=== PATIENT | male | born 1955 | race Caucasian/White ===

== ENCOUNTER 2019-07-18 16:44 | Emergency (ER) | payer MEDICARE ==
[2019-07-18] MEDS ORDERED: LORazepam 1 MG Tab PO ONE (17:48)
--- NOTE | 2019-07-18 17:50 | EDM.PDOC ---
ED HPI GENERAL MEDICAL PROBLEM - General Chief Complaint: Cardiovascular Problem Stated Complaint: [facility] Time Seen by Provider: 07/18/19 17:36 Source of Information: Reports: Patient, RN Notes Reviewed History Limitations: Reports: No Limitations - History of Present Illness INITIAL COMMENTS - FREE TEXT/NARRATIVE: 64-year-old gentleman presents via EMS services from detoxification facility for hypotensive events. I was called by the director of the facility stating this gentleman has had episodes of hypotension have given him fluids without much success. He is currently on a [address] for alcohol he does admit to being very nervous otherwise no other complaints - Related Data Allergies Allergy/AdvReac Type Severity Reaction Status Date / Time No Known Allergies Allergy Verified 07/18/19 16:52 Home Meds: Home Meds Aspirin [Lo-Dose Aspirin EC] 81 mg PO DAILY 07/18/19 [History] Cholecalciferol (Vitamin D3) [Vitamin D3] 2,000 unit PO ASDIRECTED 07/18/19 [ History] Cyanocobalamin (Vitamin B12) [Vitamin B12] 100 mcg PO DAILY 07/18/19 [History] Folic Acid 0.4 mg PO DAILY 07/18/19 [History] Latanoprost/Pf [Latanoprost 0.005% Eye Drop] 1 drop EYEBOTH BEDTIME 07/18/19 [ History] Ubidecarenone [Coq-10] 100 mg PO ASDIRECTED 07/18/19 [History] Vitamin E 200 unit PO ASDIRECTED 07/18/19 [History] amLODIPine Besylate [Amlodipine Besylate] 5 mg PO DAILY 07/18/19 [History] cephALEXin [Keflex] 500 mg PO TID 07/18/19 [History] lisinopriL [Lisinopril] 20 mg PO DAILY 07/18/19 [History] Past Medical History Cardiovascular History: Reports: Hypertension Psychiatric History: Reports: Addiction Social & Family History - Tobacco Use Packs/Tins Daily: 1 - Alcohol Use Days Per Week of Alcohol Use: 7 Number of Drinks Per Day: 10 Total Drinks Per Week: 70 - Recreational Drug Use Recreational Drug Use: No ED ROS GENERAL - Review of Systems Review Of Systems: See Below Constitutional: Reports: No Symptoms HEENT: Reports: No Symptoms Respiratory: Reports: No Symptoms Cardiovascular: Reports: No Symptoms GI/Abdominal: Reports: No Symptoms ED EXAM, GENERAL - Physical Exam Exam: See Below Exam Limited By: No Limitations General Appearance: Alert, WD/WN, No Apparent Distress Neck: Normal Inspection, Supple, Non-Tender, Full Range of Motion Respiratory/Chest: No Respiratory Distress, Lungs Clear, Normal Breath Sounds, No Accessory Muscle Use, Chest Non-Tender Cardiovascular: No Murmur, Tachycardia GI/Abdominal: Soft, Non-Tender Psychiatric: Anxious Course - Vital Signs Last Recorded V/S: Last Vital Signs Temp 97.7 F 07/18/19 16:46 Pulse 124 H 07/18/19 17:23 Resp 20 07/18/19 17:23 BP 120/78 07/18/19 17:23 Pulse Ox 99 07/18/19 17:23 - Orders/Labs/Meds Orders: Active Orders 24 hr Category Date Time Status Cardiac Monitoring [RC] .As Directed Care 07/18/19 17:40 Active Labs: Laboratory Tests 07/18/19 07/18/19 Range/Units 18:00 18:00 WBC 5.0 (4.5-11.0) K/uL RBC 3.11 L (4.30-5.90) M/uL Hgb 10.7 L (12.0-15.0) g/dL Hct 31.6 L (40.0-54.0) % MCV 102 H (80-98) fL MCH 34 H (27-31) pg MCHC 34 (32-36) % Plt Count 151 (150-400) K/uL Neut % (Auto) 51 (36-66) % Lymph % (Auto) 33 (24-44) % [place] % (Auto) 14 H (2-6) % Eos % (Auto) 2 (2-4) % Baso % (Auto) 0 (0-1) % Sodium 131 L (140-148) mmol/L Potassium 3.4 L (3.6-5.2) mmol/L Chloride 95 L (100-108) mmol/L Carbon Dioxide 24 (21-32) mmol/L Anion Gap 15.4 H (5.0-14.0) mmol/L BUN 32 H (7-18) mg/dL Creatinine 1.8 H (0.8-1.3) mg/dL Est Cr Clr Drug Dosing 36.75 mL/min Estimated GFR (MDRD) 38 L (>60) Glucose 100 (74-106) mg/dL Calcium 8.8 (8.5-10.1) mg/dL Total Bilirubin 0.3 (0.2-1.0) mg/dL AST 59 H (15-37) U/L ALT 56 (12-78) U/L Alkaline Phosphatase 50 (46-116) U/L Troponin I < 0.017 (0.000-0.056) ng/mL Total Protein 5.7 L (6.4-8.2) g/dL Albumin 2.9 L (3.4-5.0) g/dL Globulin 2.8 (2.3-3.5) g/dL Albumin/Globulin Ratio 1.0 L (1.2-2.2) Meds: Medications Discontinued Medications Generic Name Dose Route Start Last Admin Trade Name Freq PRN Reason Stop Dose Admin Lorazepam 1 mg 07/18/19 17:48 07/18/19 17:55 Ativan PO 07/18/19 17:49 1 mg ONETIME ONE Administration Departure - Departure Time of Disposition: 18:31 Disposition: Home, Self-Care 01 Condition: Fair Clinical Impression: Hypotension Qualifiers: Hypotension type: hypotension due to drug Qualified Code(s): I95.2 - Hypotension due to drugs Instructions: Hypotension, [id number] Referrals: PCP,None [Primary Care Provider] - Forms: ED Department Discharge Additional Instructions: Please hold your blood pressure medications, continue with your alcohol treatment program Sepsis Event Note - Evaluation Sepsis Screening Result: No Definite Risk - Focused Exam Vital Signs: Vital Signs Temp Pulse Resp BP Pulse Ox 07/18/19 17:23 124 H 20 120/78 99 07/18/19 16:46 97.7 F 120 H 17 109/77 99 Date Exam was Performed: 07/18/19 Time Exam was Performed: 18:30 - My Orders Last 24 Hours: My Active Orders 07/18/19 17:40 Cardiac Monitoring [RC] .As Directed - Assessment/Plan Last 24 Hours: My Active Orders 07/18/19 17:40 Cardiac Monitoring [RC] .As Directed Plan: Assessment Acuity = acute Site and laterality = iatrogenic hypotension Etiology = probably related to combination lisinopril and amlodipine Manifestations = none Location of injury = Home Lab values = hemoglobin low 10.7 consistent with macrocytic anemia, sodium low at 131 consistent hyponatremia potassium low at 3.4 consistent hypokalemia creatinine elevated 1.8 consistent with chronic renal failure stage G3 B AST elevated 59 albumin low 2.9 consistent with hypoalbuminemia troponin is negative EKG performed by EMS services shows tachycardia with no ST elevations or depressions Plan Call discussed case Dr. Justice medical administrator at [place] reviewed the case he is going to make sure his blood pressure medications are held and continue to reevaluate he will go back to alcohol withdrawal treatment This note was dictated using [employer] voice recognition software please call with any questions on syntax or grammar.
== END 2019-07-18 19:22 | disposition home or self-care (01) ==
LOC: JP.ED 16:44
DX: I95.2 Hypotension due to drugs (principal); I10 Essential (primary) hypertension; F17.210 Nicotine dependence, cigarettes, uncomplicated; Z79.82 Long term (current) use of aspirin; Z79.899 Other long term (current) drug therapy
CPT/HCPCS: 36415; 80053; 84484; 85025; 99284; 99285; A9270